=== PATIENT | female | born 1980 | race Caucasian/White ===

== ENCOUNTER 2016-07-20 12:13 | Emergency (ER) | payer OTHER ==
[~2016-07-20] VITALS: Ht 160 cm; Wt 53.1 kg
[~2016-07-20 12:13] MED LIST: ALPRAZOLAM0.5 MG PO; ALPRAZOLAM1 MG PO; ALPRAZOLAM2 MG PO; CLEOCIN300 MG PO; CLINDAMYCIN HC300 MG PO; DOXYCYCLINE HY100 M3 PO; FOCALIN XR40 MG PO; IBUPROFEN800 MG PO; PRILOSEC40 MG PO; SERTRALINE HCL100 MG PO; SERTRALINE HCL25 MG PO; SERTRALINE HCL50 MG PO; SUBOXONE; SUBOXONE 2 M1 TABLET SL; ULTRAM50 MG PO; ZOLOFT; ZOLOFT100 MG PO
[2016-07-20 13:15] LABS: HEMATOCRIT 34.8 % (36.0-46.0); MCH 29.7 PG (29.0-34.0); MCV 89.9 FL (83-99); MEAN PLAT.VOLUME 10.3 uM^3 (9.5-12.4); PLATELET COUNT 203 K/uL (156-360); RBC DIS.WIDTH-CV 13.3 % (11.8-14.6); RBC DIS.WIDTH-SD 42.7 % (39-53); RED BLOOD COUNT 3.87 M/uL (3.80-5.20)
[2016-07-20 13:15] LABS: ADD MIUA? YES; BILIRUBIN NEGATIVE; BLOOD SMALL; COLOR STRAW ((YELLOW)); GLUCOSE (STRIP) NEGATIVE; KETONES NEGATIVE; LEUKOCYTES TRACE; NITRITE NEGATIVE; PROTEIN (STRIP) NEGATIVE; SPECIFIC GRAVITY 1.005 (1.000-1.030); UROBILINOGEN 0.2 MG/DL (0.2-1.0)
[2016-07-20 13:19] LABS: BACTERIA RARE /HPF; EPITHELIAL CELLS 1+ /HPF; MUCUS NONE SEEN /LPF; RED BLOOD CELLS 0-5 /HPF (0-5); UCUL ADDED? NO; WHITE BLOOD CELLS 0-5 /HPF (0-5)
[2016-07-20 13:23] LABS: CHLORIDE 107 mEq/L (99-109); POTASSIUM 3.9 mEq/L (3.7-5.4); SODIUM 142 mEq/L (136-147)
[2016-07-20 13:26] LABS: GLUCOSE 81 mg/dL (70-99)
[2016-07-20 13:27] LABS: ANION GAP 9 MEQ/L (2-14); TOTAL BILIRUBIN 0.2 mg/dL (0.0-1.0)
[2016-07-20 13:29] LABS: ALKALINE PHOSPHATASE 44 IU/L (3-129); GFR ESTIMATE (CALCULATED) > 59 mL/min/
[2016-07-20 13:30] LABS: UREA NITROGEN (BUN) 14 mg/dL (9-23)
[2016-07-20 13:47] VITALS: BP 135/85
[2016-07-20 13:57] LABS: LIPASE 18 U/L (1.0-51.0); QUANTITATIVE HCG < 4.0 MIU/ML
== END 2016-07-20 13:41 | disposition left against medical advice (07) ==
LOC: EME 12:13
DX: J06.9 Acute upper respiratory infection, unspecified (principal); R10.9 Unspecified abdominal pain; Z87.891 Personal history of nicotine dependence
CPT/HCPCS: 80053; 81003; 83690; 84702; 85027; 86735; 87502; 87651 90; 93005; 99281; 99283

== ENCOUNTER 2017-11-07 04:50 | Emergency (ER) | payer SELFPAY ==
[~2017-11-07] VITALS: Ht 160 cm; Wt 60.2 kg
[2017-11-07 04:59] VITALS: BP 147/89
== END 2017-11-07 05:54 | disposition left against medical advice (07) ==
LOC: EME 04:50
DX: H92.02 Otalgia, left ear (principal); Z53.21 Procedure and treatment not carried out due to patient leaving prior to being seen by health care provider